=== PATIENT | female | born 1985 | race Caucasian/White ===

== ENCOUNTER → 2024-06-09 08:05 | Outpatient (REF) | payer BC, SELFPAY | LOC: HWWDC 08:05 | PROVIDERS: ATTENDING PHYSICIAN Nurse Practitioner Adult Health; FAMILY PHYSICIAN Emergency Medicine | DX: Z12.31 Encounter for screening mammogram for malignant neoplasm of breast (principal) | CPT/HCPCS: 77063; 77067 ==